=== PATIENT | female | born 1980 | race Caucasian/White ===

== ENCOUNTER 2017-09-19 14:12 | Outpatient (RCR) | payer BC | END 2017-12-18 | disposition home or self-care (01) | LOC: WSST | DX: R13.12 Dysphagia, oropharyngeal phase (principal) ==

== ENCOUNTER → 2017-09-29 | Outpatient (CLI) | payer BC | LOC: COL.RAD 15:51 | DX: R13.12 Dysphagia, oropharyngeal phase (principal) ==

== ENCOUNTER 2020-10-21 12:34 | Day surgery (SDC) | payer SELFPAY ==
[~2020-10-21] VITALS: Ht 180.3 cm; Wt 113.2 kg
[2020-10-21 13:17] VITALS: BP 109/68; PULSE 83; TEMP 98.4
[2020-10-21] MEDS ORDERED: AMITRIPTYLINE H25 M1 PO (13:33)
[2020-10-21] MEDS ORDERED: ATARAX 10MG10 MG/TAB PO (13:33)
[2020-10-21 14:51] VITALS: TEMP 98.1
[2020-10-21 15:03] VITALS: BP 96/65; PULSE 69
--- NOTE | 2020-10-21 15:03 | NUR ---
TO RM 1 PER CART FROM PACU. ALERT ORIENTED X3, TALKING TO STAFF AND . PATIENT C/O FEELING A LITTLE DIZZY. DENIES PAIN OR DISCOMFORT. DENIES FEELING NAUSATED.
[2020-10-21 15:20] VITALS: BP 101/69; PULSE 65
--- NOTE | 2020-10-21 15:20 | NUR ---
PATIENT RECEIVED PEPSI PER REQUEST. 02 SAT 99% ON ROOM AIR. DENIES PAIN AT THIS TIME.
[2020-10-21 15:40] VITALS: BP 103/72; PULSE 80
--- NOTE | 2020-10-21 15:40 | NUR ---
AMBULATE TO BATHROOM WITH MINIMAL ASSIST . VOIDED AND AMBULATED BACK TO . ONCE RETURNED TO , LAYED PTIENTTO LAY DOWN.
[2020-10-21 15:55] VITALS: BP 109/63; PULSE 74
--- NOTE | 2020-10-21 16:10 | NUR ---
RECEIVED DISCHARGEINSTRUTIONS AND VERBALIZED UNDERSTANDING. DISCONTINUED IV AND INT- CATHETER INTACT.
--- NOTE | 2020-10-21 16:25 | NUR ---
DISCHARGED PER WC BY NURSING STAFF TO PRIVATE CARE CARE OF [facility].
== END 2020-10-21 16:46 | disposition home or self-care (01) ==
LOC: SDCO 12:34
DX: R10.2 Pelvic and perineal pain (principal); R39.89 Other symptoms and signs involving the genitourinary system; R39.15 Urgency of urination; R35.0 Frequency of micturition; Z98.51 Tubal ligation status; Z90.89 Acquired absence of other organs; Z79.899 Other long term (current) drug therapy; Z87.891 Personal history of nicotine dependence
CPT/HCPCS: J0690; J1100; J2405; J2704; J3010; J7120